=== PATIENT | male | born 2000 | race Caucasian/White ===

== ENCOUNTER 2022-03-10 10:01 | Emergency (ER) | payer BC, SELFPAY ==
[2022-03-10 10:02] VITALS: BP 137/80; PULSE 74; RESP 16; TEMP 36.6; O2SAT 98; BMI 28.5
--- NOTE | 2022-03-10 10:20 | EDS_ITS ---
HPI History of Present Illness Chief Complaint: Head Injury Narrative Narrative: Patient who denies significant past medical history presents with injury to his head/face that he sustained yesterday afternoon at around 4 PM, approximately 18 hours ago. He states he was playing hockey and another player elbowed him in the face/head. There was no loss of consciousness. He may have a slight headache but denies any blurry vision. No paresthesias. No loss of vision. He does not take blood thinners. He presents to the emergency department wondering if he has a concussion, but was able to drive himself here. He has occasional nausea but no vomiting. No other injuries. PFS PFS Allergy/AdvReac Type Severity Reaction Status Date / Time No Known Allergies Allergy Verified 03/10/22 10:05 ROS ROS ED ROS Narrative Constitutional: No fever, no chills. HEENT: No sore throat. No neck pain. No loss of vision. No rhinorrhea. Cardiovascular: No chest pain. No palpitations. No pedal edema. Respiratory: No cough, no shortness of breath. Abdominal: No abdominal pain. Slight nausea. No vomiting. Genitourinary: No dysuria. No hematuria. Musculoskeletal: No myalgias. No arthralgias. Neurologic: Minimal headaches. No dizziness. No lightheadedness. No problems with concentration. No paresthesias. Skin: No rash. No change in color. Psychiatric: No depression. No anxiety. EXAM Physical Exam Narrative Exam Narrative: Afebrile. Vital signs noted. GCS 15. ABCs intact. HEENT: Normocephalic. Atraumatic. PERRL, EOMI. Neck soft and supple. No point tenderness or step off. Full range of motion. Cardiovascular: Regular rate and rhythm. No murmurs, rubs, or gallops appreciated. Respiratory: No tachypnea. Lungs clear to auscultation bilaterally. Gastrointestinal: Abdomen soft, nontender, with normoactive bowel sounds. No rebound or guarding. Neurological: Awake. Alert. Oriented to person, place, and time. Nonfocal, nonlateralizing. DTRs equal and symmetric. Skin: No rash. Normal color. No pallor. Musculoskeletal: No pedal edema. Full range of motion extremities. Const Vital Signs: 03/10/22 10:02 Temperature 97.8 F Temperature Source Temporal Pulse Rate 74 Respiratory Rate 16 Blood Pressure 137/80 H Blood Pressure Mean 99 Pulse Ox 98 Oxygen Delivery Method Room Air MDM MDM MDM Narrative Medical decision making narrative: I do not feel that CT imaging is indicated. His injury is remote he does not take blood thinners. I do feel that he may have a mild concussion/postconcussive syndrome. He was instructed on brain rest. He will take [id number] analgesics as needed. He was referred to a primary care physician and told to be off sports until 1 week after his symptoms resolve. He was given a note to be off practice/hockey games this weekend. At this point in time, I feel he can be discharged safely home with follow-up. Return instructions to the emergency department were reviewed. Disposition is discharged home in stable condition. Discharge Plan Triage Chief Complaint: Head Injury ED Provider: Faustino Espinal Dx/Rx/DC Orders Clinical Impression: Post concussive syndrome, Closed head injury Instructions: ED Concussion, ED Head Injury (Adult) Stand Alone Forms: ED Work / School Excuse Primary Care Provider: Stella Jurado,Out of Referrals: Yasmeen Matthew, DO [Med Staff - [employer]] - 1 Week if not improving Stella Jurado,Out of [Primary Care Provider] - Activity Restrictions/Additional Instructions: You have been diagnosed with postconcussive disorder/syndrome. It is important that you follow-up with a primary care physician in 7 to 10 days if you are still having symptoms. Do not perform any activities that involve risk of hitting your head again for at least a week until after your symptoms resolved. Disposition Disposition: Home, Self Care
== END 2022-03-10 10:37 | disposition home or self-care (01) ==
LOC: ED 10:30
PROVIDERS: Emergency Provider Emergency Medicine; Visit Provider Emergency Medicine
DX: F07.81 Postconcussional syndrome (principal)
CPT/HCPCS: 99282